=== PATIENT | female | born 1940 | race Caucasian/White ===

== ENCOUNTER 2017-03-05 18:37 | Inpatient (IN) | payer MEDICARE ==
[~2017-03-05] VITALS: Ht 160 cm; Wt 84.4 kg
[2017-03-05] MEDS ORDERED: ASPI-515 PO (18:45)
[2017-03-05 19:19] LABS: HEMATOCRIT 44.1 % (34.6-47.8); HEMOGLOBIN 14.2 g/dL (11.7-16.4); WHITE BLOOD COUNT 10.4 x10^3/uL (3.4-10)
[2017-03-05 19:30] LABS: ASPARTATE AMINO TRANSFERASE 41 U/L (15-37); BLOOD UREA NITROGEN 21 mg/dL (7-18)
[2017-03-05] MEDS ORDERED: SODIUM CHLORIDE FLUSH 10ML SYR IVF ONE (19:30)
[2017-03-05] MEDS ORDERED: SODIUM CHLORIDE 0.9% 1,000ML IVBOLUS ONE (19:30)
[2017-03-05 19:35] LABS: ACETAMINOPHEN < 2 mcg/mL (10-30); IS PT STATUS REG ER OR PRE ER? YES
[2017-03-05] MEDS ORDERED: CEFTRIAXONE PMX 1GM/50ML 50 ML IV ONE (21:00)
[2017-03-05] MEDS ORDERED: CEFTRIAXONE PMX 1GM/50ML 50 ML ONE (21:04)
[2017-03-05] MEDS ORDERED: ONDANSETRON 2MG/ML, 2ML IVPush PRN (21:30)
[2017-03-05] MEDS ORDERED: CEFTRIAXONE PMX 1GM/50ML 50 ML IV SCH (21:30)
[2017-03-05] MEDS: SODIUM CHLORIDE 0.9% 1,000 ML IV SCH (23:45)
[2017-03-05 23:55] VITALS: BP 151/96
[2017-03-06] MEDS: ENOXAPARIN 40 MG/0.4 ML SQ SCH ×2 (00:20→21:05)
[2017-03-06 02:05] VITALS: BP 105/59
[2017-03-06 04:45] LABS: HEMATOCRIT 39.1 % (34.6-47.8); HEMOGLOBIN 12.5 g/dL (11.7-16.4); WHITE BLOOD COUNT 7.7 x10^3/uL (3.4-10)
[2017-03-06 04:52] LABS: BLOOD UREA NITROGEN 17 mg/dL (7-18)
[2017-03-06 07:49] VITALS: BP 122/67
[2017-03-06] MEDS: ASPIRIN 81 MG TABLET EC PO SCH (09:32)
[2017-03-06] MEDS: SODIUM CHLORIDE 0.9% 1,000 ML IV SCH ×2 (09:32→18:00)
[2017-03-06 14:38] VITALS: BP 104/60
[2017-03-06] MEDS ORDERED: POTASSIUM CHLORIDE 20 MEQ TAB.ER.PRT PO ONE (15:00)
[2017-03-06 19:50] VITALS: BP 161/83
[2017-03-07 03:16] VITALS: BP 129/68
[2017-03-07] MEDS: SODIUM CHLORIDE 0.9% 1,000 ML IV SCH (05:24)
[2017-03-07 05:54] LABS: HEMATOCRIT 40.4 % (34.6-47.8); WHITE BLOOD COUNT 6.7 x10^3/uL (3.4-10)
[2017-03-07 06:02] LABS: ASPARTATE AMINO TRANSFERASE 33 U/L (15-37); BLOOD UREA NITROGEN 9 mg/dL (7-18)
[2017-03-07 07:14] VITALS: BP 176/106
[2017-03-07 07:40] VITALS: BP 156/88
[2017-03-07] MEDS: ASPIRIN 81 MG TABLET EC PO SCH (09:37)
[2017-03-07 13:20] VITALS: BP 170/88
[2017-03-07 19:26] VITALS: BP 155/76
[2017-03-07] MEDS: ENOXAPARIN 40 MG/0.4 ML SQ SCH (22:06)
[2017-03-08] MEDS: ASPIRIN 81 MG TABLET EC PO SCH (08:30)
[2017-03-08 08:40] VITALS: BP 141/75
[2017-03-08] MEDS ORDERED: ACETAMINOPHEN 325 MG TABLET PO PRN (12:00)
[2017-03-08 14:19] VITALS: BP 106/57
[2017-03-08 20:00] VITALS: BP 101/61
[2017-03-08] MEDS: ENOXAPARIN 40 MG/0.4 ML SQ SCH (21:07)
[2017-03-09 03:39] VITALS: BP 123/75
[2017-03-09 05:34] LABS: HEMATOCRIT 43.8 % (34.6-47.8); HEMOGLOBIN 14.1 g/dL (11.7-16.4)
[2017-03-09 05:50] LABS: ASPARTATE AMINO TRANSFERASE 32 U/L (15-37); BLOOD UREA NITROGEN 9 mg/dL (7-18)
[2017-03-09 08:00] VITALS: BP 129/77
[2017-03-09] MEDS: ASPIRIN 81 MG TABLET EC PO SCH (08:35)
[2017-03-09 14:59] VITALS: BP 134/88
[2017-03-09 19:55] VITALS: BP 152/92
[2017-03-09] MEDS: ENOXAPARIN 40 MG/0.4 ML SQ SCH (21:32)
[2017-03-10 02:20] VITALS: BP 114/71
[2017-03-10 08:45] VITALS: BP 135/80
[2017-03-10] MEDS: ASPIRIN 81 MG TABLET EC PO SCH (09:16)
[2017-03-10 13:12] VITALS: BP 127/78
[2017-03-10] MEDS: ENOXAPARIN 40 MG/0.4 ML SQ SCH (21:06)
[2017-03-10 21:30] VITALS: BP 138/83
[2017-03-11 01:25] VITALS: BP 100/65
[2017-03-11 08:45] VITALS: BP 147/79
[2017-03-11] MEDS: ASPIRIN 81 MG TABLET EC PO SCH (09:00)
[2017-03-11 12:50] VITALS: BP 111/74
[2017-03-11 19:35] VITALS: BP 137/88
[2017-03-11] MEDS: ENOXAPARIN 40 MG/0.4 ML SQ SCH (22:15)
[2017-03-12 02:40] VITALS: BP 115/61
[2017-03-12 08:43] VITALS: BP 158/80
[2017-03-12] MEDS: ASPIRIN 81 MG TABLET EC PO SCH (10:11)
[2017-03-12 14:00] VITALS: BP 133/72
[2017-03-12] MEDS ORDERED: ONDANSETRON 2MG/ML, 2ML IVPush PRN (14:30)
[2017-03-12] MEDS ORDERED: ACETAMINOPHEN 325 MG TABLET PO PRN (14:30)
[2017-03-12 19:31] VITALS: BP 141/83
[2017-03-12] MEDS: ENOXAPARIN 40 MG/0.4 ML SQ SCH (21:40)
[2017-03-13 04:00] VITALS: BP 116/65
[2017-03-13 08:05] VITALS: BP 154/90
[2017-03-13] MEDS: ASPIRIN 81 MG TABLET EC PO SCH (08:22)
[2017-03-13 14:29] VITALS: BP 151/89
[2017-03-13 19:25] VITALS: BP 153/54
[2017-03-13] MEDS: ENOXAPARIN 40 MG/0.4 ML SQ SCH (23:26)
[2017-03-14 02:50] VITALS: BP 105/60
[2017-03-14 07:30] VITALS: BP 152/87
[2017-03-14] MEDS: ASPIRIN 81 MG TABLET EC PO SCH (11:50)
[2017-03-14 12:55] VITALS: BP 155/83
[2017-03-14 19:55] VITALS: BP 156/81
[2017-03-14] MEDS: ENOXAPARIN 40 MG/0.4 ML SQ SCH (23:16)
[2017-03-15 02:42] VITALS: BP 101/61
[2017-03-15 08:41] VITALS: BP 141/84
[2017-03-15] MEDS: ASPIRIN 81 MG TABLET EC PO SCH (10:32)
[2017-03-15 12:30] VITALS: BP 147/81
[2017-03-15 19:00] VITALS: BP 140/79
[2017-03-15] MEDS: ENOXAPARIN 40 MG/0.4 ML SQ SCH (21:34)
[2017-03-16 03:10] VITALS: BP 105/55
[2017-03-16 08:25] VITALS: BP 138/70
[2017-03-16] MEDS: ASPIRIN 81 MG TABLET EC PO SCH (09:24)
[2017-03-16 13:40] VITALS: BP 124/67
== END 2017-03-16 18:30 | disposition home or self-care (01) | DRG 689 ==
LOC: ED 21:12 → 4NOR 21:22
PROVIDERS: ADMIT Hospitalist; ATTEND Internal Medicine
DX: N39.0 Urinary tract infection, site not specified (principal); G93.40 Encephalopathy, unspecified; F03.90 Unspecified dementia, unspecified severity, without behavioral disturbance, psychotic disturbance, mood disturbance, and anxiety; E11.9 Type 2 diabetes mellitus without complications; F30.9 Manic episode, unspecified; F41.9 Anxiety disorder, unspecified; I10 Essential (primary) hypertension; F09 Unspecified mental disorder due to known physiological condition; Z63.8 Other specified problems related to primary support group
CPT/HCPCS: 36415; 70450; 71010; 80048; 80053; 80307; 80329; 81001; 82140; 82306; 82607; 83735; 84100; 84443; 84484; 85025; 85610; 87086; 93005; 99285; J0696; J1650; 92523-GN; G0480; J7030